=== PATIENT | male | born 1990 | race Native Hawaiian/Other Pacific Islander ===

== ENCOUNTER 2022-02-25 12:39 | Outpatient (CLI) | payer BC | END 2022-02-25 19:26 | disposition home or self-care (01) | LOC: RAD 12:39 | PROVIDERS: ATTEND Nurse Practitioner Family | DX: Z00.00 Encounter for general adult medical examination without abnormal findings (principal); I10 Essential (primary) hypertension; R53.83 Other fatigue; R07.89 Other chest pain | CPT/HCPCS: 93005 ==